=== PATIENT | male | born 1970 | race Caucasian/White ===

== ENCOUNTER 2023-10-11 14:19 | Emergency (ER) | payer OTHER ==
[2023-10-11 14:27] VITALS: BP 144/89; PULSE 88; RESP 18; TEMP 98.2; BMI 31.3
[2023-10-11] MEDS ORDERED: ceFAZolin SODIUM 1 GM VIAL ONE (15:11)
[2023-10-11 15:19] LABS: BASO % 0.7 % (0-2.0); EOS % 3.4 % (0-4.5); HEMATOCRIT 44.8 % (35.4-49); HEMOGLOBIN 15.6 GM/dL (11.7-16.9); LYMPH % 22.7 % (8-40); MCH 31.5 pg (25.7-33.7); MCHC 34.8 g/dl (32.0-35.9); MEAN CELL VOLUME 90.3 fl (80-96); MONO % 6.1 % (3.8-10.2); NEUT % 67.1 % (42.8-82.8); PLATELET COUNT 131 10^3/uL (134-434); RBC 4.96 M/mm3 (4.00-5.60); RDW 12.9 % (11.9-15.9); WHITE BLOOD COUNT 7.5 K/mm3 (4.0-10.0)
[2023-10-11] MEDS: CEFAZOLIN 1 GM in DEXTROSE 5%-WATER - 50 ML IVPB ONE (15:21)
[2023-10-11] MEDS: SODIUM CHLORIDE 0.9% 500 ML INFUS.BAG IV ONE (15:21)
[2023-10-11 15:28] LABS: INR 1.04 (0.83-1.09); PROTHROMBIN TIME (PATIENT) 12.1 SEC (9.7-13.0)
[2023-10-11 15:37] LABS: POTASSIUM 3.8 mmol/L (3.5-5.1)
[2023-10-11 15:39] LABS: ALBUMIN 4.2 g/dl (3.4-5.0); BLOOD UREA NITROGEN 13.9 mg/dL (7-18)
[2023-10-11 15:42] LABS: CREATININE 0.6 mg/dL (0.55-1.3)
[2023-10-11 15:43] LABS: BILIRUBIN,TOTAL 0.5 mg/dL (0.2-1)
[2023-10-11 15:45] LABS: CALCIUM 9.7 mg/dL (8.5-10.1)
[2023-10-11] MEDS ORDERED: DIPHTH,PERTUSS(ACELL),TET 0.5 ML DISP.SYRIN IM ONE (16:09)
[2023-10-11] MEDS: DIPHTH,PERTUSS(ACELL),TET 0.5 ML DISP.SYRIN IM ONE (16:18)
[2023-10-11] MEDS ORDERED: LIDOCAINE HCL 2% (20ML MULTI-DOSE VIAL) ONE (16:28)
[2023-10-11] MEDS: LIDOCAINE HCL 2% (50ML VIAL) SQ ONE (16:29)
[2023-10-11] MEDS ORDERED: BACITRACIN ZINC 15 GM TUBE TOPICAL OINTMENT ONE (19:42)
[2023-10-11] MEDS: BACITRACIN ZINC 15 GM TUBE TOPICAL OINTMENT TP ONE (19:43)
== END 2023-10-11 19:44 | disposition home or self-care (01) ==
LOC: JER 14:19
PROC: 3E0T3BZ Introduction of Anesthetic Agent into Peripheral Nerves and Plexi, Percutaneous Approach (ICD-10-PCS; principal; 2023-10-11)
PROC: 3E03329 Introduction of Other Anti-infective into Peripheral Vein, Percutaneous Approach (ICD-10-PCS; 2023-10-11)
PROC: 3E0234Z Introduction of Serum, Toxoid and Vaccine into Muscle, Percutaneous Approach (ICD-10-PCS; 2023-10-11)
DX: S61.012A Laceration without foreign body of left thumb without damage to nail, initial encounter (principal); W31.2XXA Contact with powered woodworking and forming machines, initial encounter
CPT/HCPCS: 36415; 64450; 73130-TC-LT-FY; 80053; 85025; 85610; 86850; 86900; 86901; 90471; 90715; 96365; 99284-25